=== PATIENT | female | born 1975 | race Caucasian/White ===

== ENCOUNTER 2018-09-11 18:30 | Emergency (ER) | payer SELFPAY ==
[2018-09-06 10:38] VITALS: Wt 98.0 kg
[~2018-09-11 18:30] MED LIST changes: -EPIN0.3P15 IM
[2018-09-11] MEDS ORDERED: ONDANSETRON 4 MG/2 ML VIAL IVP ONE ×2 (18:35→20:00)
[2018-09-11] MEDS ORDERED: methylPREDNIS SUCC 125 MG/2ML IVP ONE (18:35)
[2018-09-11] MEDS ORDERED: FAMOTIDINE(*) 20MG/50ML PREMIX 50 ML IVPB ONE (18:35)
[2018-09-11] MEDS ORDERED: ALBUTEROL/IPRATROPIUM 3 ML NEB NEB ONE (18:35)
--- NOTE | 2018-09-11 18:38 | ER Report ---
History and Physical Time Seen By MD: 18:30 HPI/ROS CHIEF COMPLAINT: Allergic reaction HISTORY OF PRESENT ILLNESS: This is a 43-year-old female presents to the emergency department via EMS for an allergic reaction. Patient has a history of idiopathic anaphylaxis and mast cell activation, chronic allergic reactions. Unsure what caused the reaction today, she contacted EMS, when they arrived she was working hard to breathe, she was given 100 mg of IM Benadryl, 0.3 mg IM epinephrine. Patient has had improvement of aeration and symptoms, however she still has audible wheezing, is able to speak in 3-4 word sentences. The patient was admitted September 06 for an allergic reaction. The patient states that 2 weeks ago she had an injection at her ribbon winder's office in [place] and she had an anaphylactic reaction to the medication. REVIEW OF SYSTEMS: Constitutional: No fever, no chills. Eyes: No discharge. ENT: No sore throat. Cardiovascular: No chest pain, no palpitations. Respiratory: As above. Gastrointestinal: As above. Genitourinary: No hematuria. Musculoskeletal: No back pain. Skin: No rashes. Neurological: No headache. Allergies: Coded Allergies: Iodinated Contrast- Oral and IV Dye (Verified Allergy, Severe, anaphlaxsis, 09/06/18) codeine (Verified Allergy, Intermediate, 09/06/18) promethazine (Verified Allergy, Intermediate, halluicnations/uncontrollable shaking, 09/06/18) Uncoded Allergies: nsaid (Allergy, Severe, anaphlaxsis, 09/06/18) Home Meds Active Scripts Epinephrine (EPIPEN 2-EROS) 0.3 Mg/0.3 Ml Pen.injctr, 0.3 MG IM PRN, #1 PACK Prov:JEWELL WORTHY SENIOR MEDICAL TRANSCRIPTIONIST-BC 09/11/18 Lidocaine (Lidocaine) 5 % Adh..patch, 1 EACH TP QDAY for 7 Days, #7 PATCH.24H Prov:SHIKHA JOSHIKAREEM 09/06/18 Reported Medications Acetaminophen (TYLENOL EXTRA STRENGTH) 500 Mg Tablet, 500 MG PO 3-4XD for PAIN, #2 TAB Pt. takes tylemol 1000 MG Q 6-8 hours for chronic pain and to prevent idiopathic anaphylaxis reaction. 09/06/18 Losartan Potassium (COZAAR) 25 Mg Tablet, PO QDAY 09/06/18 Amlodipine Besylate (NORVASC) 2.5 Mg Tablet, 1 TAB PO QDAY, TAB 09/06/18 Escitalopram Oxalate (LEXAPRO) 20 Mg Tablet, 20 MG PO QDAY, TAB 09/06/18 Omeprazole (OMEPRAZOLE) 20 Mg Tablet.dr, 60 MG PO QDAY, TAB 09/06/18 Ranitidine Hcl (RANITIDINE HCL) 300 Mg Tablet, 300 MG PO QDAY 09/06/18 Diphenhydramine Hcl (BENADRYL) 25 Mg Capsule, 25 MG PO QDAY, CAPSULE 09/06/18 Montelukast Sodium (SINGULAIR) 10 Mg Tablet, 2 TAB PO QDAY, TAB 09/06/18 Cetirizine Hcl (ZYRTEC) 10 Mg Tablet, 20 MG PO QDAY, TAB 09/06/18 Prednisone (PREDNISONE) 20 Mg Tablet, 40 MG PO QDAY, TAB 09/06/18 Albuterol Sulfate 90 Mcg/Act (PROAIR HFA 90 MCG/ACT) 8.5 Gm Hfa.aer.ad, 2 PUFF IH Q4-6H PRN for SHORTNESS OF BREATH, INHALER 09/06/18 Budesonide/Formoterol Fumarate (SYMBICORT 80-4.5 MCG INHALER) 10.2 Gm Hfa.aer.ad, 2 PUFF IH BID 09/06/18 Past Medical/Surgical History The patient has a past medical and surgical history of hypertension, GERD, atrophy right kidney, urinary tract infections, mass cell activation and idiopathic anaphylaxis, depression, anxiety, gastric sleeve, appendectomy, cholecystectomy, hysterectomy. Reviewed Nurses Notes: Yes Hx Smoking: Yes Smoking Status: Current: Every Day Smoker Exposure to Second Hand Smoke?: Yes Hx Substance Use Disorder: No Hx Alcohol Use: No Constitutional Vital Sign - Last 24 Hours 09/11/18 09/11/18 09/11/18 09/11/18 18:30 18:31 18:32 18:36 Pulse ??? 120 Resp 38 B/P (MAP) 92/77 143/123 (130) 92/77 (82) Pulse Ox 100 O2 Delivery Non-Rebreather 09/11/18 09/11/18 09/11/18 09/11/18 18:53 18:53 18:58 19:00 Pulse 111 110 Resp 22 28 B/P (MAP) 157/105 (122) Pulse Ox 99 100 O2 Delivery Oxy Mask O2 Flow Rate 10.0 09/11/18 09/11/18 19:30 20:00 Pulse 91 85 Resp 17 8 B/P (MAP) 104/84 (91) 122/88 (99) Pulse Ox 99 98 Physical Exam General Appearance: The patient is alert, has no immediate need for airway protection and no signs of toxicity, sitting erect, working hard to breathe, using accessory muscles, flushing of the upper chest and cheeks. Eyes: Pupils equal and round no pallor or injection. ENT, Mouth: Mucous membranes are moist. Respiratory: Supraclavicular retractions, audible wheezing, diminished lung sounds throughout with inspiratory and expiratory wheezing on auscultation. Cardiovascular: Regular rate and rhythm, no murmurs, clicks or rubs. Gastrointestinal: Abdomen is soft and non tender, no masses, bowel sounds normal. Neurological: Alert and oriented 4. Moving all extremities. Following all commands. No focal neuro deficits. Skin: No rashes over flushing of the skin over the chest neck and cheeks, no petechiae or blistering noted. Musculoskeletal: Neck is supple non tender. Extremities are nontender, nonswollen and have full range of motion. DIFFERENTIAL DIAGNOSIS: After history and physical exam differential diagnosis was considered for shortness of breath including but not limited to pulmonary infectious process, anaphylaxis, COPD, asthma, pulmonary embolus and congestive heart failure. Medical Decision Making Data Points Result Diagram: 09/11/18 1840 09/11/18 1840 Laboratory Hematology Test 09/11/18 18:40 Red Blood Count 4.52 M/uL (4.17-5.56) Mean Corpuscular Volume 95.1 fL (80.0-96.0) Mean Corpuscular Hemoglobin 32.7 pg (26.0-33.0) Mean Corpuscular Hemoglobin Concent 34.4 g/dL (32.0-36.0) Red Cell Distribution Width 15.2 % (11.5-14.5) Mean Platelet Volume 7.3 fL (7.2-11.1) Neutrophils (%) (Auto) 59.6 % (39.4-72.5) Lymphocytes (%) (Auto) 30.3 % (17.6-49.6) Monocytes (%) (Auto) 8.5 % (4.1-12.4) Eosinophils (%) (Auto) 0.4 % (0.4-6.7) Basophils (%) (Auto) 1.2 % (0.3-1.4) Nucleated RBC Relative Count (auto) 0.1 /100WBC Neutrophils # (Auto) 12.4 K/uL (2.0-7.4) Lymphocytes # (Auto) 6.3 K/uL (1.3-3.6) Monocytes # (Auto) 1.8 K/uL (0.3-1.0) Eosinophils # (Auto) 0.1 K/uL (0.0-0.5) Basophils # (Auto) 0.2 K/uL (0.0-0.1) Nucleated RBC Absolute Count (auto) 0.02 K/uL Peripheral Blood Smear Yes Y/N Sodium Level 138 mmol/L (137-145) Potassium Level 3.3 mmol/L (3.5-5.0) Chloride Level 104 mmol/L (98-107) Carbon Dioxide Level 21 mmol/L (22-31) Blood Urea Nitrogen 25 mg/dl (7-18) Creatinine 1.00 mg/dl (0.52-1.04) Glomerular Filtration Rate Calc > 60.0 Random Glucose 104 mg/dl (75-110) Calcium Level 9.5 mg/dl (8.4-10.2) Total Bilirubin 1.1 mg/dl (0.2-1.3) Aspartate Amino Transf (AST/SGOT) 19 U/L (0-35) Alanine Aminotransferase (ALT/SGPT) 39 U/L (0-56) Alkaline Phosphatase 60 U/L (0-126) Total Protein 7.5 g/dl (6.3-8.2) Albumin 4.5 g/dl (3.5-5.0) Chemistry Test 09/11/18 18:40 White Blood Count 20.8 k/uL (4.5-11.0) Red Blood Count 4.52 M/uL (4.17-5.56) Hemoglobin 14.8 g/dL (12.0-16.0) Hematocrit 43.0 % (34.0-47.0) Mean Corpuscular Volume 95.1 fL (80.0-96.0) Mean Corpuscular Hemoglobin 32.7 pg (26.0-33.0) Mean Corpuscular Hemoglobin Concent 34.4 g/dL (32.0-36.0) Red Cell Distribution Width 15.2 % (11.5-14.5) Platelet Count 449 K/uL (150-450) Mean Platelet Volume 7.3 fL (7.2-11.1) Neutrophils (%) (Auto) 59.6 % (39.4-72.5) Lymphocytes (%) (Auto) 30.3 % (17.6-49.6) Monocytes (%) (Auto) 8.5 % (4.1-12.4) Eosinophils (%) (Auto) 0.4 % (0.4-6.7) Basophils (%) (Auto) 1.2 % (0.3-1.4) Nucleated RBC Relative Count (auto) 0.1 /100WBC Neutrophils # (Auto) 12.4 K/uL (2.0-7.4) Lymphocytes # (Auto) 6.3 K/uL (1.3-3.6) Monocytes # (Auto) 1.8 K/uL (0.3-1.0) Eosinophils # (Auto) 0.1 K/uL (0.0-0.5) Basophils # (Auto) 0.2 K/uL (0.0-0.1) Nucleated RBC Absolute Count (auto) 0.02 K/uL Peripheral Blood Smear Yes Y/N Glomerular Filtration Rate Calc > 60.0 Calcium Level 9.5 mg/dl (8.4-10.2) Total Bilirubin 1.1 mg/dl (0.2-1.3) Aspartate Amino Transf (AST/SGOT) 19 U/L (0-35) Alanine Aminotransferase (ALT/SGPT) 39 U/L (0-56) Alkaline Phosphatase 60 U/L (0-126) Total Protein 7.5 g/dl (6.3-8.2) Albumin 4.5 g/dl (3.5-5.0) EKG/Imaging EKG Interpretation 12 lead EKG: Time of EKG 1849. Rhythm: Normal sinus rhythm, ventricular rate 97 bpm. [place]: normal QRS: normal ST segments: No ST depression or elevation identified. No significant changes from the 09/06/2019 EKG. The September 06 EKG has a significant amount of underlying artifact. Imaging Location: [facility] Patient: Jessica Mcgee : 1975 Visit/Account:[id number] Date of Sevice: 09/11/2018 CHEST SINGLE AP Additional pertinent History: SOB COMPARISON STUDIES: 09/06/2018 FINDINGS: Support lines and catheters: Oxygen tubing and EKG wire leads Lungs and Pleura: Lung ac well expanded with no infiltrates or consolidations. No parenchymal mass lesions are seen. There are no effusions Heart and vasculature: Negative. Mariia and Mediastinum: Negative. Bones and Chest wall: Negative. Upper Abdomen: Negative. IMPRESSION: 1. Negative chest Report Dictated By: Dale Chavarria MD at 09/11/2018 7:47 PM Report E-Signed By: Dale Chavarria MD at 09/11/2018 7:47 PM WSN:[id number] ED Course/Re-evaluation Clinical Indication for ER IV: IV Access ED Course The patient was admitted to room via EMS. A history and physical obtained. Differential diagnoses were considered. An IV was started. A CBC, CMP were obtained. EMS did give the patient 100 mg IM Benadryl, they also gave her 0.3 mg IM epinephrine. In the emergency department the patient was given 125 mg IV Solu-Medrol, 20 mg IV famotidine, a DuoNeb, 4 mg IV Zofran, 4 mg IV morphine, patient's having significant relief of her symptoms. However the patient is still anxious and still having some chest discomfort. A repeat 4 mg IV Zofran and 4 mg IV morphine were given. CBC showing white blood cell count 20.8, potassium 3.3. The elevated WBC likely from the reaction today as well as the chronic 40mg per day steroid use. A single view chest x-ray was obtained showing no acute cardiopulmonary process. These results were reviewed with the patient. I did talk to the patient about an admission, she stated that would be okay, I did speak with Dr. Peralta the hospitalist industrial relations counselor, he did come down and speak with patient, after a lengthy discussion, the patient elected to go home. Patient oxygen saturation is 98% on room air, no audible wheezing or increased work of breathing at this time. The patient was instructed to follow-up with her ribbon winder and her primary care provider within the next one to 5 days for reevaluation. She was also sent home with 1 EpiPen. As well as a prescription. 09/11/2018 8:48:14 pm I did speak with Dr. José Peralta, the hospitalist on-call, he was able to come down and speak with patient and did offer her an admission to the hospital however the patient declined an admission at this time. Decision to Disposition Date: Sep 11, 2018 Decision to Disposition Time: 20:48 Depart Departure Latest Vital Signs Vital Signs Date Time Temp Pulse Resp B/P (MAP) Pulse Ox O2 Delivery O2 Flow Rate FiO2 09/11/18 20:00 85 8 122/88 (99) 98 09/11/18 18:53 Oxy Mask 10.0 Impression: Primary Impression: Anaphylactic reaction Condition: Improved Disposition: HOME OR SELF-CARE New Scripts Epinephrine (EPIPEN 2-EROS) 0.3 Mg/0.3 Ml Pen.injctr 0.3 MG IM PRN, #1 PACK Prov: JEWELL WORTHY 09/11/18 Patient Instructions: Anaphylaxis (ED) Additional Instructions: Return to the emergency department for any other concerns or worsening symptoms. Use the EpiPen as needed. Follow-up with your ribbon winder and primary care provider as soon as possible, within 1-5 days, for reevaluation. Drink plenty of water. Get plenty of rest. Problem Qualifiers Primary Impression: Anaphylactic reaction Encounter type: initial encounter Qualified Codes: T78.2XXA - Anaphylactic shock, unspecified, initial encounter JEWELL WORTHY Sep 11, 2018 18:38
--- NOTE | 2018-09-11 18:57 | EKG ---
FACILITY: [facility] PATIENT NAME: JESÚS ALVARES : [id number] MR: [id number] V: [id number] EXAM DATE: ORDERING PHYSICIAN: JEWELL WORTHY TECHNOLOGIST: KRIS Test Reason : ANAPHYLAXIS Blood Pressure : / mmHG Vent. Rate : 097 BPM Atrial Rate : 097 BPM P-R Int : 140 ms QRS Dur : 078 ms QT Int : 352 ms P-R-T Axes : 056 028 058 degrees QTc Int : 447 ms Normal sinus rhythm Possible Left atrial enlargement No ST-T abnormalities When compared with ECG of 06-SEP-2018 00:51, No significant change was found Confirmed by EDDIE GONZALEZ ([id number]) on 09/11/2018 9:07:18 PM Referred By: JEWELL Confirmed By:EDDIE GONZALEZ
[2018-09-11 18:59] LABS: PLATELET COUNT, AUTOMATED 449 K/uL (150-450)
[2018-09-11] MEDS ORDERED: MORPHINE 4 MG/ML SDV IVP ONE ×2 (19:05→20:00)
--- NOTE | 2018-09-11 19:50 | RADIOLOGY IMAGING REPORT ---
FACILITY: [facility] PATIENT NAME: Jessica Mcgee : 1975 MR: [id number] V: [id number] EXAM DATE: ORDERING PHYSICIAN: JEWELL WORTHY TECHNOLOGIST: Location: [facility] Patient: Jsesica Mcgee : 1975 Visit/Account:[id number] Date of Sevice: 09/11/2018 CHEST SINGLE AP Additional pertinent History: SOB COMPARISON STUDIES: 09/06/2018 FINDINGS: Support lines and catheters: Oxygen tubing and EKG wire leads Lungs and Pleura: Lung ac well expanded with no infiltrates or consolidations. No parenchymal ma ss lesions are seen. There are no effusions Heart and vasculature: Negative. Mariia and Mediastinum: Negative. Bones and Chest wall: Negative. Upper Abdomen: Negative. IMPRESSION: 1. Negative chest Report Dictated By: Dale Chavarria MD at 09/11/2018 7:47 PM Report E-Signed By: Dale Chavarria MD at 09/11/2018 7:47 PM WSN:[id number]
[2018-09-11 20:30] VITALS: BP 141/110
[2018-09-11] MEDS ORDERED: EPIN0.3P15 IM (20:50)
[2018-09-11] MEDS ORDERED: EPINEPHrine 0.3 MG SYR IM ONLY ONE (20:50)
[2018-09-11] MEDS ORDERED: ONDANSETRON 4 MG ODT TH SL ONE (21:00)
--- NOTE | 2018-09-11 21:23 | Hospitalist Consultation ---
History of Present Illness Requesting Physician Moise Worthy Reason for Consult anaphylaxis History of Present Illness 43yo female with mastocytosis and asthma who came to the ER for an anaphylactic reaction. She was walking out of her house this evening and started feeling flushed, wheezy, throat constriction and like she was going to pass out. She got in her car and drove from [place] to [place]. She, apparently, called EMS from the side of the road and they picked her up. They gave her 100mg IM of Benadryl and 0.3mg of epinephrine. She reports having this kind of reaction about 2x/week. The stimulus for the attacks is unknown. She developed mastocytosis 10 months ago. She moved to [place] about 4 months ago and the attacks became more frequent. She does see an residential service technician who gave her an injection of Xolair 2 weeks ago. She chronically has a lot of pain related to the mastocytosis and anxiety about not knowing when she will have an exacerbation. In the ER, she received methylprednisolone, famotidine, DuoNeb, Zofran, and Morphine. Currently, she is breathing comfortably. Now she is having pain in her back and abdominal cramping. This follows the anaphylaxis. History Problems: (1) HTN (hypertension) (2) Asthma (3) Mastocytosis Status: Chronic (4) Recurrent UTI (5) Chronic pain Status: Chronic (6) Depression with anxiety Home Meds Active Scripts Lidocaine (Lidocaine) 5 % Adh..patch, 1 EACH TP QDAY for 7 Days, #7 PATCH.24H Prov:SHIKHA JOSHIKAREEM DO 09/06/18 Reported Medications Acetaminophen (TYLENOL EXTRA STRENGTH) 500 Mg Tablet, 500 MG PO 3-4XD for PAIN, #2 TAB Pt. takes tylemol 1000 MG Q 6-8 hours for chronic pain and to prevent idiopathic anaphylaxis reaction. 09/06/18 Losartan Potassium (COZAAR) 25 Mg Tablet, PO QDAY 09/06/18 Amlodipine Besylate (NORVASC) 2.5 Mg Tablet, 1 TAB PO QDAY, TAB 09/06/18 Escitalopram Oxalate (LEXAPRO) 20 Mg Tablet, 20 MG PO QDAY, TAB 09/06/18 Omeprazole (OMEPRAZOLE) 20 Mg Tablet.dr, 60 MG PO QDAY, TAB 09/06/18 Ranitidine Hcl (RANITIDINE HCL) 300 Mg Tablet, 300 MG PO QDAY 09/06/18 Diphenhydramine Hcl (BENADRYL) 25 Mg Capsule, 25 MG PO QDAY, CAPSULE 09/06/18 Montelukast Sodium (SINGULAIR) 10 Mg Tablet, 2 TAB PO QDAY, TAB 09/06/18 Cetirizine Hcl (ZYRTEC) 10 Mg Tablet, 20 MG PO QDAY, TAB 09/06/18 Prednisone (PREDNISONE) 20 Mg Tablet, 40 MG PO QDAY, TAB 09/06/18 Albuterol Sulfate 90 Mcg/Act (PROAIR HFA 90 MCG/ACT) 8.5 Gm Hfa.aer.ad, 2 PUFF IH Q4-6H PRN for SHORTNESS OF BREATH, INHALER 09/06/18 Budesonide/Formoterol Fumarate (SYMBICORT 80-4.5 MCG INHALER) 10.2 Gm Hfa.aer.ad, 2 PUFF IH BID 09/06/18 Allergies: Coded Allergies: Iodinated Contrast- Oral and IV Dye (Verified Allergy, Severe, anaphlaxsis, 09/06/18) codeine (Verified Allergy, Intermediate, 09/06/18) promethazine (Verified Allergy, Intermediate, halluicnations/uncontrollable shaking, 09/06/18) Uncoded Allergies: nsaid (Allergy, Severe, anaphlaxsis, 09/06/18) Other Social/Family Hx Smokes 1/2ppd. Occasionally, smokes marijuana. On disability. Lives in [place]. Hx Smoking: Yes Smoking Status: Current: Every Day Smoker Exposure to Second Hand Smoke?: Yes Caffeine Intake: Coffee Caffeine/Cups Per Day: 2 Hx Alcohol Use: No Hx Substance Use Disorder: No Social Drug Use: Occasional Social Drugs: Marijuana Review of Systems All Systems Reviewed/Normal: Yes, Except as Noted Exam Vital Signs Vital Signs Date Time Temp Pulse Resp B/P (MAP) Pulse Ox O2 Delivery O2 Flow Rate FiO2 09/11/18 20:00 85 8 122/88 (99) 98 09/11/18 18:53 Oxy Mask 10.0 General Appearance: Alert, Awake, Other (Tearful. Breathing comfortably) Neuro: No Gross deficits Eyes: PERRLA ENT: Moist Mucous Membranes, Oropharynx Clear, Posterior Pharynx Clear, Tonsils Normal Cardiovascular: Other (Regular. Borderline tachy. No m/r/g) Respiratory: Clear to Auscultation GI: Abd Soft and Non-Tender Extremities: No Edema Integumentary: No Jaundice, No Cyanosis Medical Decision Making Data Points Result Diagram: 09/11/18183909/11/181839 Item Value Date Time Calcium Level 9.5 mg/dl 09/11/181839 Total Bilirubin 1.1 mg/dl 09/11/181839 Aspartate Amino Transf (AST/SGOT) 19 U/L 09/11/181839 Alanine Aminotransferase (ALT/SGPT) 39 U/L 09/11/181839 Alkaline Phosphatase 60 U/L 09/11/181839 Total Protein 7.5 g/dl 09/11/181839 EKG / Imaging EKG Interpretation NSR, no ST-T abnormalities. Unchanged Imaging CXR - 1. Negative chest Assessment and Plan Problems: (1) Anaphylactic reaction Status: Acute Assessment & Plan: She presented with an acute sensation of flushing, wheezing, throat constriction and the sensation like she was going to pass out. She drove from [place] to [place] and then EMS picked her up on the side of the road. She received Benadryl, Epinephrine, Methylprednisolone and Famotidine. She is doing better. Today's event is like any of her other attacks. She came to [place] because the last time she went to the [place] ER, it took them over 50 minutes to get her epinephrine. I offered her admission here, but she decided to go home. See below. (2) Mastocytosis Status: Chronic Assessment & Plan: She was diagnosed about 10 months ago. She moved to [place] 4 months ago and the symptoms have worsened. She gets anaphylactic reactions about 2x/week. She is chronically on prednisone 40mg a day, ranitidine, benadryl, and Zyrtec. She is followed by Dr. Rodriguez in [place]. (3) Chronic pain Status: Chronic Assessment & Plan: She reports having pain 24 hours a day, but gets worse pain in her abdomen and back after an anaphylactic reaction. She reports taking 1000mg of APAP 4x/day, which I told her is too much on a chronic basis and will harm her liver. I explained to her that if we admit her, I don't feel comfortable giving narcotic medications because of the respiratory depression and we don't have an exact etiology of the pain. She was very frustrated with me and the fact that no one wants to help her with her pain. She decided that she would rather go home. Copies to: AGATA RODRIGUEZ MD; MOISE WORTHY PROGRAM ADMIN- ; Venous Thromboembolism Antithrombotics Is Pt On Any Antithrombotics?: No Exam Sepsis Risk: No Definite Risk Problem Qualifiers (1) Anaphylactic reaction: Encounter type: initial encounter Qualified Codes: T78.2XXA - Anaphylactic shock, unspecified, initial encounter EDDIE GONZALEZ MD Sep 11, 2018 21:23
== END 2018-09-11 18:50 | disposition home or self-care (01) ==
LOC: ER 18:39
DX: T78.2XXA Anaphylactic shock, unspecified, initial encounter (principal); F17.210 Nicotine dependence, cigarettes, uncomplicated
CPT/HCPCS: 71045; 85025; 93005; 94640; 96372; 96374; 96375; 99284; J0171; J2270; J2405; J2930; J3490; J7620; S0119; 82040; 82247; 82310; 82374; 82435; 82565; 82947; 84075; 84132; 84155; 84295; 84450; 84460; 84520

== ENCOUNTER → 2018-09-11 | Outpatient (CLI) | payer SELFPAY ==
[2018-09-06 10:38] VITALS: BMI 40.0
[~2018-09-11] MED LIST: ACET500T68 PO; ALBU8.5H IH; AMLO2.5T75 PO; BUDE10.25 IH; CETI-176 PO; DIPH-740 PO; EPIN0.3P15 IM; ESCI20TA38 PO; LIDO700A19 TP; LOSA25TA47 PO; MONT10TA PO; OMEP-137 PO; PRED20TA6 PO; RANI-320 PO
== END ==
LOC: AMB 18:05
PROVIDERS: ATTEND Nurse Practitioner
DX: T78.2XXA Anaphylactic shock, unspecified, initial encounter (principal); R06.2 Wheezing; R06.00 Dyspnea, unspecified; D89.40 Mast cell activation, unspecified
CPT/HCPCS: A0425; A0427